=== PATIENT | male | born 1965 | race Hispanic/Latino ===

== ENCOUNTER 2017-11-05 09:53 | Emergency (ER) | payer OTHER ==
[2017-11-05] MEDS ORDERED: Adacel (T-DAP) 0.5 ML VIAL ONE (10:33)
--- NOTE | 2017-11-05 20:39 | RAD ---
RIGHT INDEX FINGER THREE VIEWS 11/05/17 No fracture was appreciated at this time. The distal phalanx appeared intact, as did all joints. A fl ze of bone on the palmar aspect of the middle finger does not appear acute and could be due to an ol d injury or old foreign body. IMPRESSION: No acute bony finding. POS: HOME
== END 2017-11-05 11:27 | disposition home or self-care (01) ==
LOC: BURERS 09:53
DX: S61.210A Laceration without foreign body of right index finger without damage to nail, initial encounter (principal); F17.210 Nicotine dependence, cigarettes, uncomplicated; W22.8XXA Striking against or struck by other objects, initial encounter
CPT/HCPCS: 12002; 90471; 90715; J2001